=== PATIENT | female | born 1975 | race Two or more races ===

== ENCOUNTER 2025-08-28 18:14 | Emergency (ER) | payer BC ==
[~2025-08-28] VITALS: Ht 160 cm; Wt 83.9 kg
[2025-08-28 19:00] VITALS: BP 143/95; O2SAT 97
[2025-08-28] MEDS ORDERED: KATERZIA1 MG/1 ML PO (19:08)
[2025-08-28] MEDS ORDERED: 0.9 % SODIUM CHLORIDE 1,000 ML IV STA (19:18)
[2025-08-28] MEDS ORDERED: ONDANSETRON HCL 2 MG/ML VIAL IV STA (19:18)
[2025-08-28] MEDS ORDERED: FAMOTIDINE/PF 20 MG/2 ML VIAL IV STA (19:18)
[2025-08-28] MEDS ORDERED: KETOROLAC TROMETHAMINE 30 MG VIAL IV ONE (21:00)
[2025-08-28] MEDS ORDERED: ONDANSETRON HCL 2 MG/ML VIAL ONE (22:06)
[2025-08-28] MEDS ORDERED: KETOROLAC TROMETHAMINE 30 MG VIAL ONE (22:06)
[2025-08-28] MEDS ORDERED: FAMOTIDINE/PF 20 MG/2 ML VIAL ONE (22:07)
[2025-08-28 23:03] LABS: URINE APPEARANCE Cloudy; URINE BILIRRUBIN Negative (NEGATIVE); URINE BLOOD Negative; URINE COLOR Yellow; URINE GLUCOSE Negative (NEGATIVE); URINE KETONE 15 (NEGATIVE); URINE LEUKOCYTE Small; URINE NITRATE Negative; URINE PROTEIN Negative (NEGATIVE); URINE UROBILINOGEN 0.2 E.U./dl
[2025-08-28 23:09] LABS: URINE EPITHELIAL CELLS 54.2 uL (0.0-38.8); URINE RBC 2.9 uL (0.0-20.8); URINE WBC 44.9 uL (0.0-23.2)
[2025-08-28 23:13] LABS: URINE CAST 0.28 uL (0.0-1.40)
[2025-08-28 23:24] LABS: ERYTHROCYTE SEDIMENTATION RATE 17 mm/hr (0-20)
[2025-08-28 23:26] LABS: BASO % 0.3 % (0.1-1.2); EOS # 0.34 (0.04-0.54); EOS % 3.3 % (0.7-7.0); LYMPH # 4.03 (1.18-3.74); LYMPH % 39.0 % (19.3-53.1); MEAN PLATELET VOLUME 9.80 fl (9.4-12.4); MONO # 0.62 (0.24-0.82); MONO % 6.0 % (4.7-12.5); NEUT # 5.29 (1.56-6.13); NEUT % 51.2 % (34.0-71.1); RED CELL DISTRIBUTION WIDTH 12.1 % (11.6-14.4)
[2025-08-28] MEDS ORDERED: METRONIDAZOLE/SODIUM CHLORIDE 500 MG/100 ML PIGGYBACK IV STA (23:26)
[2025-08-28] MEDS ORDERED: CIPROFLOXACIN IN 5 % DEXTROSE 400 MG/200 ML PIGGYBAG IV STA (23:26)
[2025-08-28 23:27] LABS: INR 1.07
[2025-08-28 23:32] LABS: ALT/SGPT 18.0 U/L (12-78); AST/SGOT 8.0 U/L (15-37); BILIRUBIN TOTAL 0.31 mg/dL (0.3-1.2); BUN CREA RATIO 16.0 (7.0-25.0); CREATININE SERUM 0.74 mg/dL (0.55-1.02); GFR 83.76; GLOBULINA 3.8 G/DL (2.4-3.5); GLUCOSE FASTING 95.0 mg/dL (65-100); OSMOLALITY SERUM 283.0 MOSM/KG (275-295)
[2025-08-28] MEDS ORDERED: CIPROFLOXACIN IN 5 % DEXTROSE 400 MG/200 ML PIGGYBAG IV ONE (23:46)
[2025-08-28] MEDS ORDERED: METRONIDAZOLE/SODIUM CHLORIDE 500 MG/100 ML PIGGYBACK IV ONE (23:47)
[2025-08-28] MEDS ORDERED: CIPRO500 MG PO (23:49)
[2025-08-28] MEDS ORDERED: METRONIDAZOLE500 MG PO (23:49)
[2025-08-28] MEDS ORDERED: LEVSIN/SL0.125 MG SL (23:49)
== END 2025-08-29 02:25 | disposition home or self-care (01) ==
LOC: ER 18:15
PROVIDERS: Physician Assistant Medical
DX: K57.32 Diverticulitis of large intestine without perforation or abscess without bleeding (principal); K59.00 Constipation, unspecified; N39.0 Urinary tract infection, site not specified; Z85.528 Personal history of other malignant neoplasm of kidney